=== PATIENT | female | born 1985 | race Caucasian/White ===

== ENCOUNTER 2022-01-31 05:38 | Emergency (ER) | payer OTHER, SELFPAY ==
[2022-01-31 05:49] VITALS: BP 125/86; PULSE 89; RESP 18; TEMP 36.7; O2SAT 99; BMI 36.6
[2022-01-31] MEDS: hydrOXYzine pamoate 25 MG CAPSULE PO (06:37)
[2022-01-31] MEDS: FAMOTIDINE 20 MG TABLET PO (06:37)
[2022-01-31 06:47] VITALS: BP 118/74; PULSE 91; RESP 18; O2SAT 99
[2022-01-31 06:48] VITALS: BP 118/74; PULSE 91; RESP 18; TEMP 36.7
--- NOTE | 2022-01-31 07:08 | ED_ITS ---
HPI - General Adult General Chief complaint: Allergic Reaction Stated complaint: Rash all over body Time Seen by Provider: 01/31/22 05:40 Source: patient Mode of arrival: ambulatory Limitations: no limitations History of Present Illness HPI narrative: 36-year-old female reports onset of itchy rash on her back now evolving into her anterior forearms for the past 1 hour. She has a notable history of type 0 thyroidism and depression, but no prior history of allergic reactions. There has been no new medication, no new food or topical exposures. She notes no swelling of the lips, mouth, tongue. No dyspnea. No swelling of the eyelids. She has not tried taking any antihistamines, allergy medications, topical steroids to help with her symptoms. No prior history of similar symptoms. No known allergies to foods but has gotten hives from coconut oil in the past. No fevers or other signs or recent illness. She is accompanied by her 2-year-old daughter today. Past medical history notable for depression, hypothyroidism. Denies any recent surgeries. Medications notable for Lexapro, levothyroxine, omeprazole. Allergies are to coconut oil only. Socially with no pertinent travel or new substances. ROS is negative for any generalized, HEENT, respiratory, cardiovascular, GI or other skin changes. Related Data Home Medications Medication Instructions Recorded Confirmed escitalopram oxalate 10 mg tablet 10 mg PO DAILY 01/31/22 01/31/22 (Lexapro) levothyroxine 100 mcg tablet 50 mcg PO DAILY 01/31/22 01/31/22 (Euthyrox) omeprazole 20 mg capsule,delayed 20 mg PO DAILY 01/31/22 01/31/22 release Previous Rx's Medication Instructions Recorded clobetasol 0.05 % topical ointment 1 applic topical BID PRN itching 1 01/31/22 week #45 grams hydroxyzine pamoate 25 mg capsule 25 mg PO QID PRN itching #30 caps 01/31/22 (Vistaril) prednisone 20 mg tablet 20 mg PO DAILY PRN #5 tabs 01/31/22 Allergies Allergy/AdvReac Type Severity Reaction Status Date / Time coconut oil Allergy Mild Hives Verified 01/31/22 05:53 [facility] Medical History Adjustment disorder with anxiety Dysthymic disorder Esophageal reflux Generalized anxiety disorder Myopia of both eyes with astigmatism Polycystic ovaries Surgical History History of tympanoplasty Social History Smoking Status: Never smoker Do you use any of these nicotine containing products: None Second hand tobacco smoke exposure: No How often do you have a drink containing alcohol: never How often do you have six or more drinks on one occasion: Never AUDIT-C Alcohol total score: 0 Non-prescribed substance use: denies use Exam Const: Vital Signs, click to edit/add: Vital Signs - 24 hr 01/31/22 05:49 01/31/22 06:47 01/31/22 06:48 Temperature 98.0 F 98.0 F Pulse Rate [Right Pulse Oximeter] 89 91 91 Respiratory Rate 18 18 18 Blood Pressure [Ri ght Upper Arm] 125/86 118/74 118/74 Pulse Oximetry 99 99 Oxygen Delivery Me thod Room Air Room Air Documenting provider has reviewed patient's vital signs: yes Common normals: no apparent distress and alert General appearance: cooperative and well kempt Orientation/consciousness: Yes awake HENMT: Common normals: normocephalic Head and scalp: normocephalic Mouth: oral and palatal mucosa normal Throat: posterior oropharynx normal Other: No tongue swelling, normal mucosa. Eye: Common normals: conjunctivae normal and no scleral icterus Conjunctiva: conjunctiva(e) normal Neck & C-Spine: Common normals: full ROM and no lymphadenopathy Cardio: Common normals: regular rate, regular rhythm, S1 normal heart sound, S2 normal heart sound, no murmurs and peripheral pulses 2+ throughout Rate: regular rate Rhythm: regular rhythm Heart sounds: S1 normal and S2 normal Peripheral pulses: pulses 2+ throughout GI: Common normals: Normal to inspection, nondistended, normoactive bowel sounds present, soft to palpation, non-tender, no hepatosplenomegaly and no masses Palpation: soft and no hepatosplenomegaly Neuro: Sensorium/orientation: awake and alert Motor exam: no tremor noted and no movement abnormalities noted Psych: Appearance: well kempt Mood and affect: anxious Insight: insight good Judgement: judgment good Skin: Narrative: Mild hives to lower back and antecubital areas bilaterally, no other affected areas. Course Vital Signs Vital signs: Initial Vital Signs Respiratory Effort Spontaneous 01/31/22 05:40 Respiratory Depth Normal 01/31/22 05:40 Respiratory Pattern 01/31/22 05:40 Vital Signs Temperature 98.0 F 01/31/22 05:49 Pulse Rate 89 01/31/22 05:49 Respiratory Rate 18 01/31/22 05:49 Blood Pressure 125/86 01/31/22 05:49 Pulse Oximetry 99 01/31/22 05:49 Oxygen Delivery Method 01/31/22 05:49 Temperature 98.0 F 01/31/22 06:48 Pulse Rate 91 01/31/22 06:48 Respiratory Rate 18 01/31/22 06:48 Blood Pressure 118/74 01/31/22 06:48 Pulse Oximetry 99 01/31/22 06:47 Oxygen Delivery Method 01/31/22 06:47 Medical Decision Making MDM Narrative Medical decision making narrative: Discussed findings with patient. No signs of anaphylaxis. Recommended antihistamine, famotidine. Offered prednisone but she is concerned with side effects after we discussed these as she is concerned that it could worsen her anxiety and she needs to care for her child. We discussed continuing antihistamines outpatient and a prescription for topical steroids and oral steroids if symptoms fail to improve. She was agreeable to the outpatient plan. Alarm symptoms that would warrant repeat evaluation were reviewed prior to discharge. Discharge Plan Discharge Clinical Impression: Urticaria Patient Disposition: Home, Self-Care Condition: Stable Instructions: Urticaria (ED) Additional Instructions: There are no signs of anaphylaxis today. Hives can be common in young woman with thyroid disease. I recommend that you begin taking an [id number] Claritin or Zyrtec 1 pill once daily for the next 10 days. Right to avoid heat, especially hot showers as this will fuel the hives. Itching also makes it worse. Apply cold compresses or ice as needed to help with the very itchy areas but try to avoid itching. I have given you a prescription for Vistaril which is an antihistamine to use as needed for itch. Especially use this at bedtime concert can make you sleepy. You may use up to 4 times daily as needed. I have also given her prescription for clobetasol ointment, a topical steroid like cortisone that can help with the itch as well. As a last resort, I have given you a prescription for prednisone, this is an oral pill to use twice a day as needed for the hives. With a lot of side effects, so I am hoping that you do not need to use it. The hives should go away within about a week, but may come and go. Any signs of significant swelling inside the mouth, difficulty breathing or other signs of anaphylaxis, come back to the emergency department. Activity Level: No Restrictions Discharge Diet: Regular Prescriptions: New prednisone 20 mg tablet 20 mg PO DAILY PRNQty: 5 0RF Rx Instructions: use if not responding to other treatements hydroxyzine pamoate [Vistaril] 25 mg capsule 25 mg PO QID PRN (Reason: itching) Qty: 30 0RF clobetasol 0.05 % ointment 1 applic topical BID PRN (Reason: itching) 7 Days Qty: 45 0RF No Action levothyroxine [Euthyrox] 100 mcg tablet 50 mcg PO DAILY omeprazole 20 mg capsule,delayed release(DR/EC) 20 mg PO DAILY escitalopram oxalate [Lexapro] 10 mg tablet 10 mg PO DAILY Stand Alone Forms: [employer] Info Instructions
== END 2022-01-31 06:48 | disposition home or self-care (01) ==
LOC: ED 06:35
PROVIDERS: Emergency Provider Family Medicine; PCP Family Medicine
DX: L50.9 Urticaria, unspecified (principal)
CPT/HCPCS: 99282; 99283; 99284; A9270

== ENCOUNTER 2024-03-03 11:13 | Emergency (ER) | payer OTHER, SELFPAY ==
[2024-03-03 11:20] VITALS: BP 113/83; PULSE 84; RESP 16; TEMP 36.3; O2SAT 97; BMI 40.9
--- NOTE | 2024-03-03 11:34 | CRLHL7_ITS ---
For Patients: As a result of the Century Cures Act, medical imaging exams and procedure reports are released immediately into your electronic medical record. You may view this report before your referring provider. If you have questions, please contact your health care provider. Indication: DIZZINESS Technique: CT of the head without contrast. Coronal and sagittal reformats. Bone and soft tissue windows. Comparison: No prior studies available for comparison at this institution. Findings: No acute intracranial hemorrhage or extra-axial collection. No evidence of acute cortical infarction. No mass effect or midline shift. Normal cerebral volume. The ventricles are normal in size, shape and contour. There is normal chirinos and white matter differentiation. The orbital contents are normal. No calvarial fractures. 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 Scalp and other imaged soft tissue structures are normal. Mastoid air cells are clear. Paranasal sinuses are well aerated. Impression: 1. No acute intracranial abnormality. 2. 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 Please note that all CT scans at this facility use dose modulation, iterative reconstruction, and/or weight-based dosing when appropriate to reduce radiation dose to as low as reasonably achievable. Dictated by Brien Martin MD @ 03/03/2024 12:20:13 PM (Electronically Signed)
--- NOTE | 2024-03-03 11:36 | ED_ITS ---
HPI - Dizziness General Date Seen: 03/03/24 Chief Complaint: Dizziness/Vertigo Stated Complaint: ear drums causing vertigo/nausea Time Seen by Provider: 03/03/24 11:19 Source: patient Mode of arrival: ambulatory Limitations: no limitations History of Present Illness HPI Narrative: Patient is a 38-year-old female presenting to the emergency department for dizziness. States the symptoms have been going on for the past week. She has been seen by urgent care twice. Has been given meclizine which she states is helping past initially was helping but is not working anymore. Had similar sy mptoms a year ago when she saw ENT and was told it was due to a problem with her right ear. She states this time it is worse though and previously meclizine helped. Is not having any associated nausea vomiting. She states when she is sitting still she is having no symptoms but when she is up walking around or turns her head she gets very dizzy. States it feels like she is on a boat. Is not able to see ENT again until April 08. Has done prednisone without any improvement. States she has not tried scopolamine or any benzodiazepine for her symptoms. Denies fevers, chills, numbness, weakness, chest pain, shortness of breath, abdominal pain. Had a headache initially when the symptoms started the headache has since resolved. Related Data Home Medications ?Medication ?Instructions ?Recorded ?Confirmed escitalopram oxalate 10 mg tablet 10 mg PO DAILY 01/31/22 01/31/22 (Lexapro) levothyroxine 100 mcg tablet 50 mcg PO DAILY 01/31/22 01/31/22 (Euthyrox) omeprazole 20 mg capsule,delayed 20 mg PO DAILY 01/31/22 01/31/22 release fexofenadine-pseudoephedrine PO 03/03/24 fluticasone propionate 50 2 spray intranasal DAILY 03/03/24 03/03/24 mcg/actuation nasal spray,suspension meclizine 25 mg tablet 25 mg PO 3XD PRN vertigo 03/03/24 03/03/24 Previous Rx's ?Medication ?Instructions ?Recorded clobetasol 0.05 % topical ointment 1 applic topical BID PRN itching 1 01/31/22 week #45 grams hydroxyzine pamoate 25 mg capsule 25 mg PO QID PRN itching #30 caps 01/31/22 (Vistaril) scopolamine base 1 mg over 3 days 1 patch transdermal Q3D PRN #4 ea 03/03/24 transdermal patch Allergies Allergy/AdvReac Type Severity Reaction Status Date / Time coconut oil Allergy Mild Hives Verified 01/31/22 05:53 Review of Systems Status of ROS: Reports: 10 or more systems reviewed and unremarkable except as noted in History and below [facility] Medical History Dysthymic disorder ?F34.1 - Dysthymic disorder (ICD-10) Esophageal reflux ?K21.9 - Gastro-esophageal reflux disease without esophagitis (ICD-10) Polycystic ovaries ?E28.2 - Polycystic ovarian syndrome (ICD-10) Adjustment disorder with anxiety ?F43.22 - Adjustment disorder with anxiety (ICD-10) Generalized anxiety disorder ?F41.1 - Generalized anxiety disorder (ICD-10) Myopia of both eyes with astigmatism ?H52.13 - Myopia, bilateral (ICD-10) ?H52.203 - Unspecified astigmatism, bilateral (ICD-10) Surgical History History of tympanoplasty ?Z98.890 - Other specified postprocedural states (ICD-10) Social History Smoking Status: Never smoker Do you use any of these nicotine containing products: None Second hand tobacco smoke exposure: No How often do you have a drink containing alcohol: never How often do you have six or more drinks on one occasion: Never AUDIT-C Alcohol total score: 0 Non-prescribed substance use: denies use Exam Narrative: Exam Narrative: Const: Well-nourished, Well-developed, in mild distress Eyes: PERRL, no conjunctival injection, and symmetrical lids HENT: Atraumatic external nose and ears. Moist mucous membranes. Neck: Symmetric, trachea midline, No thyromegaly. CVS: RRR, No murmurs or gallops. Peripheral pulses 2+ and equal in all extremities RESP: Unlabored respiratory effort. Clear to auscultation bilaterally. GI: Nontender/Nondistended, No rebound or guarding. MSK:Extremities w/o deformity, Normal Active ROM Skin: Warm, Dry. No rashes or lesions. Neuro: Normal Muscle tone, Cranial nerves 2-12 grossly intact, normal [id number], normal [id number]-[id number], normal gait, normal strength 5/5 upper lower extremities bilaterally, normal sensation upper and lower extremities bilaterally, normal rapid alternating movements. Psych: Awake, Alert, & Oriented x3. Appropriate mood and affect. Const: Vital Signs, click to edit/add: Vital Signs - 24 hr 03/03/24 11:20 03/03/24 13:12 Temperature 97.4 F L Pulse Rate [Pulse Oximeter] 84 Pulse Rate [orthos tatic lying] 60 Pulse Rate [orthos tatic sitting] 67 Pulse Rate [orthos tatic standing] 73 Respiratory Rate 16 Blood Pressure [Ri ght Upper Arm] 113/83 Blood Pressure [or thostatic lying Ri ght Arm] 120/91 H Blood Pressure [or thostatic sitting] 124/92 H Blood Pressure [or thostatic standing ] 114/81 Pulse Oximetry 97 Oxygen Delivery Me thod Room Air Course Vital Signs Vital signs: Initial Vital Signs Temperature 97.4 F L 03/03/24 11:20 Temperature Source Temporal Artery Scan 03/03/24 11:20 Pulse Rate 84 03/03/24 11:20 Respiratory Rate 16 03/03/24 11:20 Blood Pressure 113/83 03/03/24 11:20 Blood Pressure Mean 93 03/03/24 11:20 Blood Pressure Position Sitting 03/03/24 11:20 Pulse Oximetry 97 03/03/24 11:20 Oxygen Delivery Method Room Air 03/03/24 11:20 Vital Signs Temperature 97.4 F L 03/03/24 11:20 Pulse Rate 84 03/03/24 11:20 Respiratory Rate 16 03/03/24 11:20 Blood Pressure 113/83 03/03/24 11:20 Pulse Oximetry 97 03/03/24 11:20 Oxygen Delivery Method Room Air 03/03/24 11:20 Temperature 97.4 F L 03/03/24 11:20 Pulse Rate 60 03/03/24 13:12 Respiratory Rate 16 03/03/24 11:20 Blood Pressure 120/91 H 03/03/24 13:12 Pulse Oximetry 97 03/03/24 11:20 Oxygen Delivery Method Room Air 03/03/24 11:20 Medications Administered Medications: Discontinued Medications Generic Name Dose Route Start Last Admin Trade Name Antione PRN Reason Stop Dose Admin Diazepam 2.5 mg 03/03/24 13:39 03/03/24 13:56 Diazepam 5 Mg Tablet PO 03/03/24 13:40 2.5 mg ONCE ONE Administration Sodium Chloride 1,000 mls @ 1,000 mls/hr 03/03/24 11:45 03/03/24 13:09 0.9 % Sodium Chloride 1000 Ml IV 03/03/24 12:44 Infused .Q1H DICK Infusion MDM - Dizziness MDM Narrative Medical decision making narrative: Patient is a 38-year-old female presenting for dizziness. The differential diagnosis of vertigo is broad and includes common etiologies such as menieres disease, labyrinthitis, benign positional vertigo, otitis media, etc. More serious etiologies considered include central etiologies such as tumor, intracerebral bleed, dissection, ischemic cerebral vascular accident. Considering she only has symptoms with movement of her head or body this is most likely a peripheral vertigo. She is having no symptoms at this time and hints e vincent is not applicable. She does state the symptoms are getting worse or spoke to her about possible head CT. I explained to her the risks with the radiation but she states she would like to do the head CT at this time. Will also give her fluids as she may be dehydrated still present she states she has had decreased appetite over the past week. Also check urinalysis, urine test, magnesium, BMP, CBC, COVID/flu/RSV. Lab work all returned showing no concerning abnormalities. CT scan reviewed by myself the radiologist showed no concerning abnormalities. Viral swabs were negative. We did have PT attempt the Giancarlo maneuver but was unsuccessful the patient states. She still having symptoms. Did give her L of fluids and she initially felt better after this but then started getting dizzy again. Will try Valium to see if this help. Orthostatic vitals within normal limits. She did not seem to have much improvement with the Valium. At this point I am unsure exactly was causing symptoms but she seems otherwise stable. Is most likely a peripheral vertigo. Will try scopolamine patch in informed in follow-up with her primary care provider. She is agreeable to this plan. Lab Data Labs: Lab Results 03/03/24 03/03/24 Range/Units 11:55 12:00 WBC 8.46 (4.50-11.00) K/uL RBC 4.59 (4.00-5.20) m/uL Hgb 15.3 (12.0-16.0) gm/dL Hct 44.3 (33.0-51.0) % MCV 97 (80-100) fL MCH 33 (26-34) pg MCHC 35 (32-36) gm/dL RDW Coeff of Lita 11.2 L (11.5-15.5) % Plt Count 206 (140-440) K/uL Neut % (Auto) 51.8 (42.0-72.0) % Lymph % (Auto) 38.9 (20-44) % [place] % (Auto) 7.8 (0.0-11.0) % Eos % (Auto) 0.6 (0.0-7.0) % Baso % (Auto) 0.5 (0.0-3.0) % Neut # (Auto) 4.39 (1.7-7.0) K/uL Lymph # (Auto) 3.29 H (0.90-2.90) K/uL [place] # (Auto) 0.70 (0.00-0.90) K/UL Eos # (Auto) 0.05 (0.00-0.50) K/uL Baso # (Auto) 0.04 (0.00-0.30) K/uL Abs Immat Gran (auto) 0.03 (0.00-0.30) K/uL Imm/Tot Granulo (auto) 0.4 % Sodium 136 (135-149) mmol/L Potassium 3.6 (3.6-5.1) mmol/L Chloride 103 (96-114) mmol/L Carbon Dioxide 25 (20-32) mmol/L Anion Gap 8 (7-15) mEq/L BUN 18 (5-24) mg/dL Creatinine 0.9 (0.5-1.5) mg/dL Estimated Creat Clear 74.62 Estimated GFR 85 ml/min Glucose 171 H (60-115) mg/dL Calcium 9.8 (8.4-10.6) mg/dL Magnesium 2.1 (1.5-2.6) mg/dL Urine Color Yellow (Yellow) Urine Appearance Clear (Clear) Urine pH 6.0 (5.0-8.5) Ur Specific [place] >= 1.030 (1.000-1.030) Urine Protein Trace A (Negative) Urine Glucose (UA) Negative (Negative) Urine Ketones Negative (Negative) Urine Blood Negative (Negative) Urine Nitrite Negative (Negative) Urine Bilirubin Negative (Negative) Urine Urobilinogen 1.0 (0.2-1.0) Ur Leukocyte Esterase Trace A (Negative) Urine RBC 0-2 (0-2) Urine WBC 2-5 (0-5) Ur Squamous Epith Cells Moderate A (None-Few) Urine Bacteria Moderate A (None) Urine HCG, Qual Negative (Negative) SARS-CoV-2 (PCR) Negative SARS-CoV-2 (Negative) Influenza Type A (PCR) Negative PCR FLU A (Negative) Influenza Type B (PCR) Negative PCR FLU B (Negative) Imaging Data CT scan - head: Attestation: I have reviewed the pertinent imaging results. Radiologist's impression: 1. No acute intracranial abnormality. 2. 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 Please note that all CT scans at this facility use dose modulation, iterative reconstruction, and/or weight-based dosing when appropriate to reduce radiation dose to as low as reasonably achievable. Dictated by Brien Martin MD @ 03/03/2024 12:20:13 PM Discharge Plan Discharge Clinical Impression: Vertigo Patient Disposition: Home, Self-Care Condition: Stable Instructions: Dizziness (ED) Additional Instructions: I recommend trying to get in with your primary care provider sooner than your EN T since she cannot get a with ENT until April 08. Use the scopolamine patch as directed. The medication may take a few hours to kick in. Return for new or worsening symptom. You do have an osteoma seen on your CT scan. This is a benign outgrowth of bone and is not of concern. Prescriptions: New scopolamine base 1 mg over 3 days patch 3 day 1 patch transdermal Q3D PRNQty: 4 0RF No Action levothyroxine [Euthyrox] 100 mcg tablet 50 mcg PO DAILY omeprazole 20 mg capsule,delayed release(DR/EC) 20 mg PO DAILY escitalopram oxalate [Lexapro] 10 mg tablet 10 mg PO DAILY hydroxyzine pamoate [Vistaril] 25 mg capsule 25 mg PO QID PRN (Reason: itching) Qty: 30 0RF clobetasol 0.05 % ointment 1 applic topical BID PRN (Reason: itching) 7 Days Qty: 45 0RF fluticasone propionate 50 mcg/actuation spray,suspension 2 spray INTRANASAL DAILY fexofenadine-pseudoephedrine [Petty-D 12 Hour] PO meclizine 25 mg tablet 25 mg PO 3XD PRN (Reason: vertigo) Follow Up/Referrals: Lakesha Avilez MD [Primary Care Provider] - [facility] Inst[facility]
[2024-03-03 12:05] LABS: Appearance Urine Clear (Clear); Bilirubin Urine Negative (Negative); Blood Urine Negative (Negative); Color Urine Yellow (Yellow); Glucose Urine Negative (Negative); Ketones Urine Negative (Negative); Leukocyte Esterase Urine Trace (Negative); Nitrite Urine Negative (Negative); Protein Urine Trace (Negative); Specific Gravity Urine >= 1.030 (1.000-1.030)
[2024-03-03] MEDS: 0.9 % SODIUM CHLORIDE 1000 ml 1,000 ML IV (12:08)
[2024-03-03 12:09] LABS: Ur HCG Qualitative* Negative (Negative)
[2024-03-03 12:13] LABS: Basophils Absolute Auto 0.04 K/uL (0.00-0.30); Basophils Percent Auto 0.5 % (0.0-3.0); Eosinophils Absolute Auto 0.05 K/uL (0.00-0.50); Eosinophils Percent Auto 0.6 % (0.0-7.0); Hematocrit 44.3 % (33.0-51.0); Hemoglobin* 15.3 gm/dL (12.0-16.0); Immature Granulocytes Abs Auto 0.03 K/uL (0.00-0.30); Immature Granulocytes Pct Auto 0.4 %; Lymphocytes Absolute Auto 3.29 K/uL (0.90-2.90); Lymphocytes Percent Auto 38.9 % (20-44); Mean Corpuscular HGB Conc 35 gm/dL (32-36); Mean Corpuscular Hemoglobin 33 pg (26-34); Mean Corpuscular Volume 97 fL (80-100); Monocytes Percent Auto 7.8 % (0.0-11.0); Neutrophils Absolute Auto 4.39 K/uL (1.7-7.0); Neutrophils Percent Auto 51.8 % (42.0-72.0); Platelet Count* 206 K/uL (140-440); RDW Coefficient of Variation % 11.2 % (11.5-15.5); Red Blood Count 4.59 m/uL (4.00-5.20); White Blood Count* 8.46 K/uL (4.50-11.00)
[2024-03-03 12:19] LABS: Slide Review Reflex No
[2024-03-03 12:26] LABS: RBC Urine 0-2 (0-2); Squamous Epithelial Cell Urine Moderate (None-Few)
[2024-03-03 12:27] LABS: Bacteria Urine Moderate
[2024-03-03 12:27] LABS: Chloride* 103 mmol/L (96-114); Potassium* 3.6 mmol/L (3.6-5.1); Sodium* 136 mmol/L (135-149)
[2024-03-03 12:30] LABS: Anion Gap 8 mEq/L (7-15); Blood Urea Nitrogen* 18 mg/dL (5-24); Calcium* 9.8 mg/dL (8.4-10.6); Carbon Dioxide* 25 mmol/L (20-32); Creatinine* 0.9 mg/dL (0.5-1.5); Est. Creatinine Clearance* 74.62; Estimated Glomerular Filt Rate 85 ml/min; Glucose* 171 mg/dL (60-115)
[2024-03-03 12:31] LABS: Magnesium* 2.1 mg/dL (1.5-2.6)
[2024-03-03 12:51] LABS: PCR FLU A Negative PCR FLU A (Negative); PCR FLU B Negative PCR FLU B (Negative); SARS PCR* Negative SARS-CoV-2 (Negative)
[2024-03-03 13:12] VITALS: BP 114/81; BP 120/91; BP 124/92; PULSE 60; PULSE 67; PULSE 73
[2024-03-03] MEDS: diazePAM 5 MG TABLET 2.5 MG PO (13:56)
== END 2024-03-03 14:25 | disposition home or self-care (01) ==
PROVIDERS: Emergency Provider Student in an Organized Health Care Education/Training Program; PCP Family Medicine
DX: R42 Dizziness and giddiness (principal)
CPT/HCPCS: 36415; 70450; 80048; 81001; 81025; 83735; 85025; 87086; 87631; 97112; 97161; 99283; 99284; J7030

== ENCOUNTER 2024-05-24 20:27 | Emergency (ER) | payer MEDICAID, SELFPAY ==
--- OUTSIDE RECORDS SUMMARY | 2024-05-24 20:29 | XMS_ITS | Clinical Summary ---
Author Organization [employer] [facility] Address [address] [place] [id number] Care Team Providers Care Logistics Manager Name Role Phone Pcp, No Primary Care Provider Unavailabl e Allergies Active Allergy Reactions Criticality Noted Date Comments Coconut Milk 08/17/2007 Face swell and red Medications omeprazole 20 mg tablet Take 1 tablet by mouth once daily. 90 tablet 3 05/07/19 21 Active escitalopram oxalate (LEXAPRO) 10 mg tabletIndications: Generalized anxiety disorder,Adjustmen t disorder with anxiety,Dysthymic disorder Take 1 Tablet (10 mg) by mouth every morning. 100 Tablet 3 09/15/19 23 Active azelastine 137 mcg/actuation (ASTELIN) nasal sprayIndications:E ustachian tube disorder, right Inhale 2 Sprays into affected nostril(s) two times daily. Use as needed. May use in conjunction with nasal steroid medications. 30 mL 5 03/10/20 23 Active fluticasone (50 mcg per actuation) nasal solution (FLONASE)Indicatio ns:Eustachian tube disorder, right Inhale 1 Warren into affected nostril(s) once daily. 16 g 03/10/20 23 Active triamcinolone (ARISTOCORT; KENALOG) 0.1 % creamIndications:R estless Apply topically to affected area(s) three times daily. 80 g 05/18/19 24 Active meclizine (ANTIVERT) 25 mg tabletIndications: Benign paroxysmal positional vertigo due to bilateral vestibular disorder,Lighthead edness Take 1 Tablet (25 mg) by mouth 3 times daily if needed for Vertigo. 30 Tablet 3 07/06/19 24 Active ondansetron (ZOFRAN ODT) 4 mg disintegrating tabletIndications: Benign paroxysmal positional vertigo due to bilateral vestibular disorder,Lighthead edness Place 1 Tablet (4 mg) on the tongue every 8 hours if needed for Nausea/Vomiting . 30 Tablet 3 07/06/19 24 Active levothyroxine (SYNTHROID) 125 mcg tabletIndications: Hypothyroidism (acquired) Take 1 Tablet (125 mcg) by mouth before breakfast. 100 Tablet 3 07/07/19 24 Active CPAPIndications:OS A (obstructive sleep apnea) CPAP machine for home use at pressure 7-12 cmw, nasal mask x1/3month with nasal cushion x2/mo 1 Each 11 08/15/19 24 Active fexofenadine-pseud oephedrine, 60-120 MG, (Petty-D) 60-120 mg per tablet Take 1 Tablet by mouth once daily. 025 Discontin ued(*Med complete/ Regimen complete/ Level of care change) Hospital, Clinic, or Other Facility Administered Medication Ordered Dose Route Frequency Start Date End Date Status etonogestrel subdermal implant (NEXPLANON) 1 EachIndications:Nexplanon insertion 1 Each Sdrm Q 3 YEARS 10/22/2020 Active Active Problems Problem Noted Date Diagnosed Date Hypothyroidism (acquired) 05/01/2024 History of PCOS 05/01/2024 Female pattern hair loss 05/01/2024 JEWELS 05/09/2022 AHI- 23 08/09/2022 Myopia of both eyes with astigmatism 06/28/2021 Generalized anxiety disorder 03/31/2021 Adjustment disorder with anxiety 03/31/2021 False positive HIV serology 10/22/2020 Cervical high risk HPV (human papillomavirus) te st positive 07/18/2019 Overview (09/21/2023): 07/2019 NIL/HPV+, HPV 16/18-negative. 07/2020 NIL/HPV negative 09/2023 NIL/HPV+, HPV 16/18 negative Plan: HPV based testing in 1 year Polycystic ovaries 10/03/2007 Esophageal reflux 08/17/2007 Dysthymic disorder 08/15/2007 Resolved Problems Problem Noted Date Diagnosed Date Resolved Date (normal spontaneous vaginal delivery) 01/17/2020 10/22/2020 Supervision of other normal 07/30/2019 10/22/2020 Unspecified otitis media 08/17/2007 Body mass index 27.0-27.9, adult 08/15/2007 07/30/2019 Encounters Date Type Department Care Team Description 05/08/2024 Travel 05/01/2024 4:15 PM REGISTERED PHLEBOTOMIST PART TIME Office Visit [facility] [address] [place] [address] Juan Carlos Dotson MD Hair/Scalp Problem (Hair loss in front adventist area mostly, getting handfuls of hair with showering and brushing. Also concern with hair growth on chin, has hx PCOS.) 05/01/2024 Travel 04/08/2024 9:40 AM REGISTERED PHLEBOTOMIST PART TIME Office Visit [facility] [address] [place] [phone] Christopher Reese MD Ear Problem (B/l ears feel sucked in. Seen in UC. Popping with swallowing. Occasional shooting pain behind ear. 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) 03/18/2024 Travel 03/12/2024 7:55 AM REGISTERED PHLEBOTOMIST PART TIME Office Visit [address] [address] Juan Carlos Dotson MD Letter (return to work letter) 03/11/2024 Travel 03/04/2024 1:45 PM REGISTERED PHLEBOTOMIST PART TIME Office Visit [facility] [id number] [place] [address] Juan Carlos Dotson MD ER Follow up (ER [place] 03/03/24 and today she as seen by ENT Dx with Vestibular Migraine's./) 03/03/2024 Orders Only [facility] Scanner 1 scan: (1-Ord) [facility], URINE CULTURE/MULTIPLE LABS, 03/03/2024 03/03/2024 Orders Only [facility] Scanner 1 scan: (1-Ord) [facility], HEAD/BRAIN WO CON, 03/03/2024 03/03/2024 Travel 03/02/2024 2:00 PM REGISTERED PHLEBOTOMIST PART TIME Office Visit [facility] [address] [address] Rosana Kinney NP Lightheaded 03/02/2024 Travel 02/28/2024 12:30 PM REGISTERED PHLEBOTOMIST PART TIME Office Visit [facility] [address] [place] [address] Bc Spence, AuD Hearing Problem 02/28/2024 Telephone [facility] [address] [place] [address] Bc Spence, AuD Ear Problem 02/28/2024 Travel 02/28/2024 Telephone [facility] [address] [place] [address] Lakesha Avilez MD Referral (Audiological Evaluation) 02/26/2024 11:45 AM REGISTERED PHLEBOTOMIST PART TIME Office Visit [facility] [address] [address] Florinda Bey NP Ear Problem 02/26/2024 Travel from Last 3 Months Immunizations Name Administration Dates Next Due Influenza, IIV4 12/05/2019 Tdap 10/28/2019 Family History Medical History Relation Name Comments Seizures Brother Good Health Father Other Mother MS Heart attack Paternal Grandfather and pac emaker Relation Name Status Comments Brother Father Alive Mother Alive Paternal Grandfather Social History Tobacco Use Types Packs/Day Years Used Date Smoking Tobacco: Former Cigarettes 0.3 10.3 2 010 - 07/17/2019 Smokeless Tobacco: Current Tobacco Cessation:Ready to Q uit: No; Counseling Given: No Comments:vapes Alcohol Use Standard Drinks/Week Comments Yes 0 (1 standard drink = 0.6 oz pur e alcohol) occ PHQ-2 Answer Date Recorded PHQ-2 TOTAL SCORE 2 09/13/2023 Social Connections Answer Date Recorded Do you often feel lonely or isolated from those around you? 0 09/13/2023 Financial Resource Strain Answer Date R ecorded Difficulty of Paying Living Expenses 3 09/13/2023 Difficulty of Paying Living Expenses Not on file 09/13/2023 Food Insecurity Answer Date Recorded Do you worry your food will run out before you are able to buy more? 1 09/13/2023 Transportation Needs Answer Date Record ed Does lack of transportation keep you from medica l appointments? 1 09/13/2023 Does lack of transportation keep you from work, meetings or getting things that you need? 1 09/13/2023 Housing Stability Answer Date Recorded What is your housing situation today? 1 09/13/2023 Utilities Answer Date Recorded Do you have trouble paying f or utilities (for example, heat, electricity, water, phone)? 1 09/13/2023 Comments No Sex and Gender Information Value Date Recorded Sex Assigned at Female 03/06/2020 9:00 PM REGISTERED PHLEBOTOMIST PART TIME Legal Sex Female 6:44 AM REGISTERED PHLEBOTOMIST PART TIME Gender Identity Female 03/06/2020 9:00 PM REGISTERED PHLEBOTOMIST PART TIME Sexual Orientation Straight 03/06/2020 9: 00 PM REGISTERED PHLEBOTOMIST PART TIME Obstetrics History Para Term AB IAB SAB Ectopic Multiple Livin g Live Births 3 1 1 0 2 0 2 0 0 1 1 Date Outcome GA Total Labor Labor/2nd/3rd Weight Sex Type Anes PTL Celia A1 A5 Name Clin 2009 Term 40w 5d 0h 03m 3.47 kg (7 lb 10.4 oz) F Vag Epidur al N Livin g 8 9 SERRES ,BG BRANDON Atwoo d Complications:None Delivery Location:[facility]) Comments Did clomid and ovulation gabriel ts Last Filed Vital Signs Vital Sign Reading Time Taken Comments Blood Pressure 108/78 05/01/2024 4:26 PM REGISTERED PHLEBOTOMIST PART TIME Pulse 78 05/01/2024 4:26 PM REGISTERED PHLEBOTOMIST PART TIME Temperature 36.2 C (97.1 F) 03/02/2024 2:10 PM REGISTERED PHLEBOTOMIST PART TIME Respiratory Rate 16 03/02/2024 2:10 PM REGISTERED PHLEBOTOMIST PART TIME Oxygen Saturation 99% 03/12/2024 8:00 AM REGISTERED PHLEBOTOMIST PART TIME Inhaled Oxygen Concentration - - Weight 108.5 kg (239 lb 1.6 oz) 05/01/2024 4:26 PM REGISTERED PHLEBOTOMIST PART TIME Height 162.6 cm (5' 4) 05/01/2024 4:26 PM REGISTERED PHLEBOTOMIST PART TIME Body Mass Index 41.04 05/01/2024 4:26 PM REGISTERED PHLEBOTOMIST PART TIME Plan of Treatment Upcoming Encounters Date Type Department Care Team (Late st Contact Info) Description 09/12/2024 9:40 AM CDT Office Visit [facility] [address] [place] [phone] Christopher Reese MD [address] [place] [address] Health Maintenance Due Date Last Done Comments COVID-19 vaccine series ( season) 2023 Influenza for age 9-49 12/03/2023 12/05/2019 Depression screening for age 12+ 09/12/2024 09/13/2023, 09/13/2023, 09/14/2022, Additional history exists Pap test for age 21-65 09/12/2024 , 09/13/2023, 07/16/2020, Additional history exists BMI (ht and wt on same day) for age 18+ 05/01/2025 05/01/2024, 03/02/2024, 09/13/2023, Additional history exists Tetanus booster 10/27/2029 10/28/2019 HIV for age 15-65 Completed 10/28/2019, , 07/23/2019, Additional history exists Tdap Completed 10/28/2019 Hepatitis C screening for age 18-79 Completed 07/13/2023 Pneumococcal series for age 6-49 Aged Out No longer eligible based on patient's age to complete this topic Procedures Procedure Name Priority Date/Time Associated Diagnosis Comments SCAN-PATHOLOGY REPORT 03/03/2024 12:00 AM REGISTERED PHLEBOTOMIST PART TIME SCAN-CT INTERPRETATION 12:00 AM REGISTERED PHLEBOTOMIST PART TIME HPV HIGH RISK Routine 09/13/2023 11:25 AM CDT Screening for cervical cancer ANTI HCV Routine 07/13/2023 9:23 AM CDT Elevated ferritin Elevated LFTs ANTI HIV 1/2 Routine 10/28/2019 10:35 AM CDT Supervision of other normal from Last 3 Months or Most Recently Relevant to Health Maintenance Results * SCAN-PATHOLOGY REPORT (03/03/2024 12:00 AM REGISTERED PHLEBOTOMIST PART TIME) us Scanner OTHER Final Result * SCAN-CT INTERPRETATION (03/03/2024 12:00 AM REGISTERED PHLEBOTOMIST PART TIME) Anatomical Region Laterality Modality Other us Scanner OTHER Final Result * (ABNORMAL) HPV HIGH RISK (09/13/2023 11:25 AM CDT) TYPE 16 Negative Negative 09/16/2023 2:19 PM CDT [facility] TYPE 18 Negative Negative 09/16/2023 2:19 PM CDT [facility] OTHER HIGH RISK TYPES Positive(A) Negative 09/16/2023 2:19 PM CDT [facility] Other (Cervical) Non-Blood / Unknown 09/13/2023 11:25 AM CDT 09/15/2023 8:04 AM CDT Narrative [facility] - 09/16/2023 2:19 PM CDT Specimen is positive for the DNA of any one of, or combination of, the following high risk HPV types: 31, 33, 35, 39, 45, 51, 52, 56, 58, 59, 66, 68. HPV types 16 and 18 DNA were undetectable or below the pre-set threshold. Methodology: Chelo Alfonzo 4800 HPV Test us Narendra Jefferson MD MICROBIOLOGY F inal Result [facility] [address] [place], [place] [id number], [place] * ANTI HCV (07/13/2023 9:23 AM CDT) Pathologist [facility] HEPATITIS C ANTIBODY Non-Reacti ve Non-React cat 07/13/2023 5:48 PM CDT [facility] Comment:Please note, per www .CDC.gov: If a patient is known to be at high risk of HCV infection, or is symptomatic, and the physician's suspicion of HCV infection is high, HCV RNA testing is often employed and is of diagnostic value, even after an initial negative anti-HCV test result. Blood BLOOD SPECIMEN / Unknown Venipuncture / Unknown 07/13/2023 9:23 AM CDT 07/13/2023 9:23 AM CDT us Lakesha Avilez MD SEND OUTS Final R esult Performing Organization Address [facility] [address]/ZIP Co de Phone Number [facility] [address] [place] [address], [place] * (ABNORMAL) ANTI HIV 1/2 (10/28/2019 10:35 AM CDT) Pathologist [facility] HIV-1/HIV-2 ANTIBODY Reactive, Preliminary Positive(A) Non-Reac tive 10/29/2019 11:33 AM CDT [facility] Comment:Presumptive evidence of HIV-1 p24 Ag and/or HIV-1/HIV-2 Ab. HIV 1/2 Differentation test ordered. Blood BLOOD SPECIMEN / Unknown Venipuncture / Unknown 10/28/2019 10:35 AM CDT 10/28/2019 10:35 AM CDT us Jessi Baeza MD SEND OUTS Final R esult [facility] [address] [place] [address], [place] from Last 3 Months or Most Recently Relevant to Health Maintenance [place] [id number] Advance Directives * Full Code (Latest Code Status on File) Date Activated Date Inactivated Comments 01/17/2020 4:04 AM 01/19/2020 6:30 PM Question Answer Comments Code Status Discussion: Not Discussed Care Teams Logistics Manager Relationship Specialty Start Date End Date Pcp, No . PCP - General 11/26/15
[2024-05-24 20:35] VITALS: BP 132/86; PULSE 85; RESP 18; TEMP 36.1; O2SAT 97; BMI 42.1
--- NOTE | 2024-05-24 20:50 | ED.GENADULT ---
HPI - General Adult General Chief complaint: Laceration/Wound Stated complaint: injured by drill bit Time Seen by Provider: 05/24/24 20:49 Source: patient Mode of arrival: ambulatory Limitations: no limitations History of Present Illness HPI narrative: 38-year-old female presents today with concerns about injury she sustained after getting scratched by a drill bit on her leg. Patient is concerned that she does not know the date of her last tetanus shot. Denies any pain. Related Data Home Medications ?Medication ?Instructions ?Recorded ?Confirmed escitalopram oxalate 10 mg tablet 10 mg PO DAILY 01/31/22 01/31/22 (Lexapro) levothyroxine 100 mcg tablet 50 mcg PO DAILY 01/31/22 01/31/22 (Euthyrox) omeprazole 20 mg capsule,delayed 20 mg PO DAILY 01/31/22 01/31/22 release fexofenadine-pseudoephedrine PO 03/03/24 fluticasone propionate 50 2 spray intranasal DAILY 03/03/24 03/03/24 mcg/actuation nasal spray,suspension meclizine 25 mg tablet 25 mg PO 3XD PRN vertigo 03/03/24 03/03/24 Previous Rx's ?Medication ?Instructions ?Recorded clobetasol 0.05 % topical ointment 1 applic topical BID PRN itching 1 01/31/22 week #45 grams hydroxyzine pamoate 25 mg capsule 25 mg PO QID PRN itching #30 caps 01/31/22 (Vistaril) scopolamine base 1 mg over 3 days 1 patch transdermal Q3D PRN #4 ea 03/03/24 transdermal patch Allergies Allergy/AdvReac Type Severity Reaction Status Date / Time coconut oil Allergy Mild Hives Verified 01/31/22 05:53 Review of Systems Narrative: Patient denies any other injury. Not having any pain. Did not have significant bleeding. [facility] Medical History Dysthymic disorder ?F34.1 - Dysthymic disorder (ICD-10) Esophageal reflux ?K21.9 - Gastro-esophageal reflux disease without esophagitis (ICD-10) Polycystic ovaries ?E28.2 - Polycystic ovarian syndrome (ICD-10) Adjustment disorder with anxiety ?F43.22 - Adjustment disorder with anxiety (ICD-10) Generalized anxiety disorder ?F41.1 - Generalized anxiety disorder (ICD-10) Myopia of both eyes with astigmatism ?H52.13 - Myopia, bilateral (ICD-10) ?H52.203 - Unspecified astigmatism, bilateral (ICD-10) Surgical History History of tympanoplasty ?Z98.890 - Other specified postprocedural states (ICD-10) Social History Smoking Status: Never smoker Do you use any of these nicotine containing products: None Second hand tobacco smoke exposure: No How often do you have a drink containing alcohol: never How often do you have six or more drinks on one occasion: Never AUDIT-C Alcohol total score: 0 Non-prescribed substance use: denies use Exam Narrative: Exam Narrative: Obese, well-developed patient in no acute distress. Alert and oriented. Answers questions appropriately. Mood and affect are appropriate. Thoughts are goal oriented and rational. No tangential or magical thinking noted. Patient speaks in full sentences without needing to catch her breath. HEENT: Normocephalic atraumatic. Extraocular muscles are intact. Conjunctivae are moist without any icterus noted. Moist mucous membranes. Extremities: Patient has 3 very superficial scratches that are less than 0.5 cm each to by the ankle and 1 bowel on the upper lower extremity. Scratches barely penetrate the epidermis. Const: Vital Signs, click to edit/add: Vital Signs - 24 hr 05/24/24 20:35 Temperature 97.0 F L Pulse Rate [Left P ulse Oximeter] 85 Respiratory Rate 18 Blood Pressure [Ri ght Upper Arm] 132/86 Pulse Oximetry 97 Oxygen Delivery Me thod Room Air Course Vital Signs Vital signs: Initial Vital Signs Temperature 97.0 F L 05/24/24 20:35 Temperature Source Temporal Artery Scan 05/24/24 20:35 Pulse Rate 85 05/24/24 20:35 Pulse Rhythm Regular 05/24/24 20:35 Respiratory Rate 18 05/24/24 20:35 Blood Pressure 132/86 05/24/24 20:35 Blood Pressure Mean 101 05/24/24 20:35 Blood Pressure Position Sitting 05/24/24 20:35 Pulse Oximetry 97 05/24/24 20:35 Oxygen Delivery Method Room Air 05/24/24 20:35 Vital Signs Temperature 97.0 F L 05/24/24 20:35 Pulse Rate 85 05/24/24 20:35 Respiratory Rate 18 05/24/24 20:35 Blood Pressure 132/86 05/24/24 20:35 Pulse Oximetry 97 05/24/24 20:35 Oxygen Delivery Method Room Air 05/24/24 20:35 Temperature 97.0 F L 05/24/24 20:35 Pulse Rate 85 05/24/24 20:35 Respiratory Rate 18 05/24/24 20:35 Blood Pressure 132/86 05/24/24 20:35 Pulse Oximetry 97 05/24/24 20:35 Oxygen Delivery Method Room Air 05/24/24 20:35 Medical Decision Making MDM Narrative Medical decision making narrative: Tetanus updated in 2020. 38-year-old female with scratches to the lower extremity we discussed wound hygiene. Discharge Plan Discharge Clinical Impression: Abrasion Patient Disposition: Home, Self-Care Condition: Stable Additional Instructions: Recommend he wash with warm soapy water today and apply antibiotic ointment to the scratches. Keep wound clean and dry. Watch for signs and symptoms of infection including increasing redness of the area, purulent drainage, or fever. If this occurs follow-up with your doctor. Prescriptions: No Action levothyroxine [Euthyrox] 100 mcg tablet 50 mcg PO DAILY omeprazole 20 mg capsule,delayed release(DR/EC) 20 mg PO DAILY escitalopram oxalate [Lexapro] 10 mg tablet 10 mg PO DAILY hydroxyzine pamoate [Vistaril] 25 mg capsule 25 mg PO QID PRN (Reason: itching) Qty: 30 0RF clobetasol 0.05 % ointment 1 applic topical BID PRN (Reason: itching) 7 Days Qty: 45 0RF fluticasone propionate 50 mcg/actuation spray,suspension 2 spray INTRANASAL DAILY fexofenadine-pseudoephedrine [Petty-D 12 Hour] PO meclizine 25 mg tablet 25 mg PO 3XD PRN (Reason: vertigo) scopolamine base 1 mg over 3 days patch 3 day 1 patch transdermal Q3D PRNQty: 4 0RF Follow Up/Referrals: Lakesha Avilez MD [Primary Care Provider] - Stand Alone [facility] Inst[facility]
--- OUTSIDE RECORDS SUMMARY | 2024-05-24 21:02 | XMS_ITS | Clinical Summary ---
Author Organization [facility] Address [address] [place] [id number] Care Team Providers Care Vp [employer] Name Role Phone Pcp, No Primary Care [...] (FLONASE)Indicatio ns:Eustachian tube disorder, right Inhale 1 Ocate into affected nostril(s) once daily. 16 g [...] Team Description 05/08/2024 Travel 05/01/2024 4:15 PM LEAK DETECTION ENGINEER [place] [facility] [place] [address] [place] [address] Juan Carlos Dotson MD Hair/Scalp Problem (Hair loss in front holiness area mostly, getting handfuls of hair with showering and brushing. Also concern with hair growth on chin, has hx PCOS.) 05/01/2024 Travel 04/08/2024 9:40 AM LEAK DETECTION ENGINEER Office Visit [facility] [address] [place] [phone] Christopher Reese MD Ear Problem (B/l ears feel sucked in. Seen in UC. Popping with swallowing. Occasional shooting pain behind ear. 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 Scanner 1 scan: (1-Ord) [facility], URINE CULTURE/MULTIPLE LABS, 03/03/2024 03/03/2024 Orders Only [facility] Scanner 1 scan: (1-Ord) [facility], HEAD/BRAIN WO CON, 03/03/2024 03/03/2024 Travel 03/02/2024 2:00 PM LEAK DETECTION ENGINEER Office Visit [facility] [address] [address] Rosana Kinney NP Lightheaded 03/02/2024 Travel 02/28/2024 12:30 PM LEAK DETECTION ENGINEER Office Visit [facility] [address] [place] [address] Bc Spence, AuD Hearing Problem 02/28/2024 Telephone [facility] [address] [place] [address] Bc Spence, AuD Ear Problem 02/28/2024 Travel 02/28/2024 Telephone [facility] [place] [address] [place] [address] Lakesha Avilez MD Referral (Audiological Evaluation) 02/26/2024 11:45 AM LEAK DETECTION ENGINEER Office Visit [facility] [address] [address] Florinda Bey NP Ear Problem 02/26/2024 Travel [...] Sex Assigned at Female 03/06/2020 9:00 PM LEAK DETECTION ENGINEER Legal Sex Female 6:44 AM LEAK DETECTION ENGINEER Gender Identity Female 03/06/2020 9:00 PM LEAK DETECTION ENGINEER Sexual Orientation Straight 03/06/2020 9: 00 PM LEAK DETECTION ENGINEER Obstetrics History Para Term AB IAB SAB [...] SERRES ,BG BRANDON Atwoo d Complications:None Delivery Location:[facility]) Comments Did clomid and ovulation gabriel ts Last Filed Vital Signs Vital Sign Reading Time Taken Comments Blood Pressure 108/78 05/01/2024 4:26 PM LEAK DETECTION ENGINEER Pulse 78 05/01/2024 4:26 PM LEAK DETECTION ENGINEER Temperature 36.2 C (97.1 F) 03/02/2024 2:10 PM LEAK DETECTION ENGINEER Respiratory Rate 16 03/02/2024 2:10 PM LEAK DETECTION ENGINEER Oxygen Saturation 99% 03/12/2024 8:00 AM LEAK DETECTION ENGINEER Inhaled Oxygen Concentration - - Weight 108.5 kg (239 lb 1.6 oz) 05/01/2024 4:26 PM LEAK DETECTION ENGINEER Height 162.6 cm (5' 4) 05/01/2024 4:26 PM LEAK DETECTION ENGINEER Body Mass Index 41.04 05/01/2024 4:26 PM LEAK DETECTION ENGINEER Plan of Treatment Upcoming Encounters Date Type Department Care Team (Late st Contact Info) Description 09/12/2024 9:40 AM CDT Office Visit [facility] [address] [place] [phone] Christopher Reese MD [address] [place] [address] Health Maintenance Due Date Last Done Comments [...] Diagnosis Comments SCAN-PATHOLOGY REPORT 03/03/2024 12:00 AM LEAK DETECTION ENGINEER SCAN-CT INTERPRETATION 12:00 AM LEAK DETECTION ENGINEER HPV HIGH RISK Routine 09/13/2023 11:25 AM CDT Screening for cervical cancer ANTI HCV Routine 07/13/2023 9:23 AM CDT Elevated ferritin Elevated LFTs ANTI HIV 1/2 Routine 10/28/2019 10:35 AM CDT Supervision of other normal from Last 3 Months or Most Recently Relevant to Health Maintenance Results * SCAN-PATHOLOGY REPORT (03/03/2024 12:00 AM LEAK DETECTION ENGINEER) us Scanner OTHER Final Result * SCAN-CT INTERPRETATION (03/03/2024 12:00 AM LEAK DETECTION ENGINEER) Anatomical Region Laterality Modality Other us Scanner OTHER Final Result * (ABNORMAL) HPV HIGH RISK (09/13/2023 11:25 AM CDT) TYPE 16 Negative Negative 09/16/2023 2:19 PM CDT [facility] TYPE 18 Negative Negative 09/16/2023 2:19 PM CDT [facility] OTHER HIGH RISK TYPES Positive(A) Negative 09/16/2023 2:19 PM CDT [facility] Other (Cervical) Non-Blood / Unknown 09/13/2023 11:25 AM CDT 09/15/2023 8:04 AM CDT Narrative [facility] - 09/16/2023 2:19 PM CDT Specimen [...] Narendra Jefferson MD MICROBIOLOGY F inal Result [facility] [address] [place], [place] [id number], [place] * ANTI HCV (07/13/2023 9:23 AM CDT) Pathologist [facility] HEPATITIS C ANTIBODY Non-Reacti ve Non-React cat 07/13/2023 5:48 PM CDT [facility] Comment:Please note, per www [...] OUTS Final R esult Performing Organization Address [facility]/ZIP Co de Phone Number [facility] [address] [place] [address], [place] * (ABNORMAL) ANTI HIV 1/2 (10/28/2019 10:35 AM CDT) Pathologist [facility] HIV-1/HIV-2 ANTIBODY Reactive, Preliminary Positive(A) Non-Reac tive 10/29/2019 11:33 AM CDT [facility] Comment:Presumptive evidence of HIV-1 p24 Ag and/or HIV-1/HIV-2 Ab. HIV 1/2 Differentation test ordered. Blood BLOOD SPECIMEN / Unknown Venipuncture / Unknown 10/28/2019 10:35 AM CDT 10/28/2019 10:35 AM CDT us Jessi Baeza MD SEND OUTS Final R esult [facility] [address] [place] [address], [place] from Last 3 Months or Most Recently Relevant to Health Maintenance [place] [id number] Advance Directives * Full Code (Latest Code Status on File) Date Activated Date Inactivated Comments 01/17/2020 4:04 AM 01/19/2020 6:30 PM Question Answer Comments Code Status Discussion: Not Discussed Care Teams Vp [employer] Relationship Specialty Start Date End Date Pcp, No . PCP - General 11/26/15
== END 2024-05-24 21:02 | disposition home or self-care (01) ==
LOC: ED 21:00
PROVIDERS: Emergency Provider Family Medicine; PCP Family Medicine
DX: S90.511A Abrasion, right ankle, initial encounter (principal); S80.811A Abrasion, right lower leg, initial encounter; W27.8XXA Contact with other nonpowered hand tool, initial encounter
CPT/HCPCS: 99283